=== PATIENT | male | born 1990 | race Hispanic/Latino ===

== ENCOUNTER 2017-05-29 17:11 | Emergency (ER) | payer SELFPAY | END 2017-05-29 18:04 | disposition home or self-care (01) | LOC: EDH 17:11 | DX: M54.5 Low back pain (principal); Z72.0 Tobacco use; Z88.0 Allergy status to penicillin | CPT/HCPCS: 99281 ==

== ENCOUNTER 2019-11-04 18:18 | Emergency (ER) | payer SELFPAY | END 2019-11-04 20:23 | disposition home or self-care (01) | LOC: EDH 18:18 | DX: F41.1 Generalized anxiety disorder (principal); I10 Essential (primary) hypertension; Z87.891 Personal history of nicotine dependence; Z88.0 Allergy status to penicillin ==

== ENCOUNTER 2024-06-18 21:00 | Emergency (ER) | payer BC ==
[~2024-06-18] VITALS: Ht 190.5 cm; Wt 161.5 kg
--- NOTE | 2024-06-18 21:31 | ERN ---
ED Note History of Present Illness Stated Complaint: HEADACHES,MULTIPLE COMPLAINTS Time Seen by MD: 21:08 Time Seen by Midlevel: 21:08 Dictation: The patient is a 34-year-old male with a history of anxiety who presents to the emergency department with complaints of left side and occipital headache, palpitations onset today. Patient denies any trauma, denies any nausea vomiting or diarrhea, denies any fevers. Denies any chest pain. Allergies: Coded Allergies: Penicillins (Unverified Allergy, Unknown, 06/18/24) Past Medical History RN Note Reviewed/Agreed w/PFSH: Yes Review of System Dictation Constitutional: Negative for fever,chills, and weight loss Eyes: Negative for injury, pain,redness, and discharge ENT: Negative for injury,pain or swelling Cardiovascular: Negative for chest pain, and edema positive for palpitations Respiratory: Negative for shortness of breath, cough, and wheezing, Abdomen/GI: Negative for abdominal pain, nausea, vomiting, diarrhea, and constipation Back: Negative for injury and pain : Negative for injury, bleeding and discharge MS/Extremity: Negative for injury and deformity Skin: Negative for rash, and discoloration Neuro: Negative for weakness, numbness, tingling, and seizure positive for headache Psych: Negative for suicide ideation, homicidal ideation, and hallucinations Initial Vital Sign VS Vital Signs Date Time Temp Pulse Resp B/P (MAP) Pulse Ox O2 Delivery O2 Flow Rate FiO2 06/18/24 21:49 98.8 95 18 150/90 98 Room Air 0 06/19/24 00:14 21 Physical Exam Dictation Vital Signs reviewed General Appearance: Alert, oriented x 3, no acute distress, well developed, nourished. Head and Face: non-traumatic. Eyes: PERRL, pink conjunctivas, eyelid no trauma, anterior chamber with arcus senilis. Ears: Pinnas intact and no signs of trauma or erythema ear canals clear and no discharge TM no erythema Nose: No discharge, no bleeding. Oropharynx: Mouth normal, tongue pink. pharynx clear,no erythema, tonsils no exudates, no abscesses noted, mucous membrane moist Neck: Supple, non-tender, no thyromegaly, no masses, no JVD, no bruits Breast:Deferred Chest:No tenderness, no crepitus, no paradoxical movement, no retractions Lungs:Clear, well-ventilated, symmetric, no rales, no wheezing, no rhonchi, no stridor, good breath sounds bilaterally Heart: Regular rate, regular rhythm, no murmur, no gallops Vascular: no peripheral edema, Abdomen: Soft, positive bowel sounds, nondistended, no guarding, nontender, no rebound, no masses no hepatomegaly, no splenomegaly, no Schreiber's sign, no hernias. Rectal: Deferred Genital: Deferred Neurological: Normal speech, motor function intact, sensory function intact Musculoskeletal: Neck nontender, full range of motion, back nontender, full range of motion, Extremities: nontender, full range of motion Skin: Color pink, dry, no turgor, no rash, no lacerations, no abrasions, no contusions. Lymphatic: Deferred Results (Laboratory/Radiology) Laboratory/Radiology Laboratory Tests Test 06/18/24 22:03 06/18/24 23:18 White Blood Count 10.6 K/uL (4.8-10.8) Red Blood Count 4.96 MIL/uL (4.50-6.20) Hemoglobin 14.1 g/dL (14.0-18.0) Hematocrit 41.9 % (42-54) L Mean Corpuscular Volume 84.5 fL (79-99) Mean Corpuscular Hemoglobin 28.4 pg (27.0-33.0) Mean Corpuscular Hemoglobin Concent 33.7 g/dL (32.0-36.0) Red Cell Distribution Width 13.8 % (11.0-15.5) Platelet Count 345 K/uL (130-400) Mean Platelet Volume 11.5 fL (7.5-10.5) H Immature Granulocyte % (Auto) 0.3 % (0-1) Neutrophils (%) (Auto) 74.9 % (40.0-77.0) Lymphocytes (%) (Auto) 18.0 % (21.0-51.0) L Monocytes (%) (Auto) 5.2 % (3.0-13.0) Eosinophils (%) (Auto) 0.8 % (0.0-8.0) Basophils (%) (Auto) 0.8 % (0.0-5.0) Neutrophils # (Auto) 8.0 K/uL (1.8-7.7) H Lymphocytes # (Auto) 1.9 K/uL (1.0-4.8) Monocytes # (Auto) 0.6 K/uL (0.1-1.0) Eosinophils # (Auto) 0.09 K/uL (0.00-0.70) Basophils # (Auto) 0.08 K/uL (0.00-0.20) Absolute Immature Granulocyte (auto 0.03 K/uL (0-1) Nucleated Red Blood Cells 0.0 % (0.0-0.19) Sodium Level 140 mmol/L (136-145) Potassium Level 4.0 mmol/L (3.5-5.1) Chloride Level 104 mmol/L (101-111) Carbon Dioxide Level 29 mmol/L (21-32) Blood Urea Nitrogen 9 mg/dL (7-18) Creatinine 0.9 mg/dL (0.5-1.3) Glomerular Filtration Rate Calc 115 mL/min (>90) Random Glucose 141 mg/dL (70-105) H Total Calcium 8.8 mg/dL (8.5-10.1) Total Creatine Kinase 138 U/L (21-232) Troponin I High Sensitivity 5 ng/L (4-75) Urine Color LIGHT-YELLOW (YELLOW) Urine Appearance CLEAR (CLEAR) Urine pH 8.5 (5.0-8.0) H Urine Specific [place] 1.021 (1.001-1.031) Urine Protein 20 mg/dL (NEGATIVE) H Urine Glucose (UA) NEGATIVE mg/dL (NEGATIVE) Urine Ketones NEGATIVE mg/dL (NEGATIVE) Urine Occult Blood NEGATIVE (NEGATIVE) Urine Nitrate NEGATIVE (NEGATIVE) Urine Bilirubin NEGATIVE mg/dL (NEGATIVE) Urine Urobilinogen 0.2 mg/dL (0.2-1.0) Urine Leukocyte Esterase NEGATIVE Denise/uL Urine RBC 0-1 /HPF (0-1) Urine WBC 0-1 /HPF (0-1) Urine Bacteria None /HPF (None Seen) Urine Opiates Screen NEGATIVE (NEGATIVE) Urine Barbiturates Screen NEGATIVE (NEGATIVE) Urine Phencyclidine Screen NEGATIVE (NEGATIVE) Urine Amphetamines Screen NEGATIVE (NEGATIVE) Urine Benzodiazepines Screen NEGATIVE (NEGATIVE) Urine Cocaine Screen NEGATIVE (NEGATIVE) Urine Marijuana (THC) Screen NEGATIVE (NEGATIVE) REASON: headache ORDERING PHYSICIAN: ELLA HANCOCK PATTERN RULER PROCEDURE: HEAD WO - CT HEAD/BRAIN W/O CONTRAST CT HEAD/BRAIN W/O CONTRAST INDICATION: headache TECHNIQUE: CT HEAD/BRAIN W/O CONTRAST. CT was performed with one or more of the following dose reduction techniques: Automated exposure control, adjustment of the mA and/or kV according to the patient's size, or use of the iterative reconstruction technique. Comparison: None FINDINGS: The ventricles and extra ventricular CSF spaces are within normal limits. No mass effect, midline shift or herniation. No extra axial collection. No acute intracranial bleed. The visualized paranasal sinuses and mastoid air cells are normally aerated. IMPRESSION: No acute intracranial findings. Labs Reviewed?: Yes EKG: (+) rhythm (Sinus rhythm) EKG Comment: Date:06/18/2024 Time:2153 Ventricular rate:84 IL interval:164 QRS duration:107 QT/QTc:359 EKG interpretation: Sinus rhythm Reviewed by ED Attending no STEMI ED Course ED Course Orders Procedure Category Date Status Time Cbc With Differential LAB 06/18/24 Complete 21:13 Chest 1vw RAD 06/18/24 Taken 21:13 12 Lead Ekg Tracing- EKG 06/18/24 Logged Technical 21:13 Creatine Kinase, Total LAB 06/18/24 Complete 21:13 Troponin I High LAB 06/18/24 Complete Sensitivity 21:13 Urinalysis Profile LAB 06/18/24 Complete 21:13 Basic Metabolic Panel LAB 06/18/24 Complete 21:13 Ct Head/Brain W/O CT 06/18/24 Resulted Contrast 21:13 Drug Screen Urine LAB 06/18/24 Complete 21:13 Acetaminophen 500mg PHA 06/18/24 Complete Tab (Tylenol 500mg T 22:00 0.9%Nacl 1000ml (Ns PHA 06/18/24 Complete 1000ml) 22:00 Hydroxyzine 25mg Tab PHA 06/18/24 Complete (Atarax 25mg Tab) 22:00 Current Medications Medications (Trade) Dose Ordered Sig/Vanessa Route PRN Reason Start Time Stop Time Status Last Admin Dose Admin Acetaminophen (TYLenol 500MG TAB) 1,000 mg ONCE ONCE PO 06/18/24 22:00 06/18/24 22:01 DC 06/18/24 23:27 Hydroxyzine HCl (ATArax 25MG TAB) 25 mg ONCE ONCE PO 06/18/24 22:00 06/18/24 22:01 DC 06/18/24 23:27 Sodium Chloride 1,000 ml @ 0 mls/hr ONCE ONCE IV 06/18/24 22:00 06/18/24 22:01 DC 06/19/24 00:08 Vital Signs Date Time Temp Pulse Resp B/P (MAP) Pulse Ox O2 Delivery O2 Flow Rate FiO2 06/19/24 00:14 87 18 148/88 98 Room Air* 0 21 06/18/24 21:49 98.8 95 18 150/90 98 Room Air 0 Medical Decision Making MDM The patient is a 34-year-old male with a history of anxiety who presents to the emergency department with complaints of left side and occipital headache, palpitations onset today. Patient denies any trauma, denies any nausea vomiting or diarrhea, denies any fevers. Denies any chest pain. CBC showed no leukocytosis, no anemia, chemistry showed no electrolyte imbalance, normal renal function, negative troponin, urinalysis unremarkable, drug screen unremarkable CT head showed no acute intracranial hemorrhage. Patient reports feeling better. Reports improving in headache. Will be discharged to follow up with PCP. Patient in no acute distress, nontoxic appearance. Differential diagnosis: Intracerebral hemorrhage, ACS, dehydration, anxiety Need for hospitalization: Patient does not meet criteria for hospitalization. There are no social concerns with this patient. DX & DISP Disposition: Discharge Departure Impression: Primary Impression: Anxiety Additional Impression: Headache Condition: Stable Scripts Hydroxyzine HCl (Hydroxyzine HCl) 25 Mg Tablet 1 TAB PO TID for anxiety for 30 Days, #90 TAB 0 Refills Prov: ELLA HANCOCK PATTERN RULER 06/19/24 Additional Instructions: FOLLOW-UP WITH PRIMARY CARE PROVIDER IN 1 TO 2 DAYS. TAKE MEDICATIONS DIRECTED HERE IN THE EMERGENCY ROOM. OKAY TO CONTINUE HOME MEDICATIONS UNLESS OTHERWISE DISCUSSED DURING YOUR VISIT IN THE EMERGENCY ROOM TODAY. RETURN TO YOUR NEAREST EMERGENCY ROOM IF SYMPTOMS WORSEN OR IF THERE IS NO IMPROVEMENT. CALL 911 IF YOU NEED IMMEDIATE ASSISTANCE. TAKE TYLENOL OR MOTRIN [id number] NEEDED AND IF NO CONTRAINDICATIONS ARE PRESENT. INCREASE ORAL HYDRATION. A WOUND CULTURE OR URINE CULTURE WAS ORDERED HERE IN THE EMERGENCY ROOM DEPARTMENT PLEASE FOLLOW-UP WITH PRIMARY CARE PROVIDER AND ADVISE THEM TO GET REPEAT PORTS FROM OUR FACILITY. IF YOU HAD ANY CHIO WRAP/SPLINTS THAT WERE APPLIED HERE, PLEASE DO NOT REMOVE THEM UNTIL YOU SEE YOUR PRIMARY CARE OR SPECIALTY. Referrals: SELF,REFERRAL (PCP) Time of Disposition: 00:47 I have reviewed the case, and I agree with, Diagnosis and Plan ELLA HANCOCK Jun 18, 2024 21:31
--- NOTE | 2024-06-18 21:53 | HMCIMG ---
CT HEAD/BRAIN W/O CONTRAST INDICATION: headache TECHNIQUE: CT HEAD/BRAIN W/O CONTRAST. CT was performed with one or more of the following dose reduction techniques: Automated exposure control, adjustment of the mA and/or kV according to the patient's size, or use of the iterative reconstruction technique. Comparison: None FINDINGS: The ventricles and extra ventricular CSF spaces are within normal limits. No mass effect, midline shift or herniation. No extra axial collection. No acute intracranial bleed. The visualized paranasal sinuses and mastoid air cells are normally aerated. IMPRESSION: No acute intracranial findings.
[2024-06-18 22:17] LABS: BASOPHILS # (AUTO) 0.08 K/uL (0.00-0.20); BASOPHILS % (AUTO) 0.8 % (0.0-5.0); EOSINOPHILS # (AUTO) 0.09 K/uL (0.00-0.70); EOSINOPHILS % (AUTO) 0.8 % (0.0-8.0); HEMATOCRIT 41.9 % (42-54); IMMATURE GRANULOCYTE ABSOLUTE 0.03 K/uL (0-1); LYMPHOCYTES # (AUTO) 1.9 K/uL (1.0-4.8); MEAN CORPUSCULAR HEMOGLOBIN 28.4 pg (27.0-33.0); MEAN CORPUSCULAR HGB CONC 33.7 g/dL (32.0-36.0); MEAN CORPUSCULAR VOLUME 84.5 fL (79-99); MONOCYTES # (AUTO) 0.6 K/uL (0.1-1.0); MONOCYTES % (AUTO) 5.2 % (3.0-13.0); NEUTROPHILS % (AUTO) 74.9 % (40.0-77.0); PLATELET COUNT (AUTO) 345 K/uL (130-400); RED BLOOD CELL COUNT(AUTO) 4.96 MIL/uL (4.50-6.20); RED CELL DISTRIBUTION WIDTH 13.8 % (11.0-15.5); WHITE BLOOD COUNT (AUTO) 10.6 K/uL (4.8-10.8)
[2024-06-18 22:29] LABS: CREATININE 0.9 mg/dL (0.5-1.3)
[2024-06-18] MEDS: acetaMINOPHEN 500 MG TABLET PO ONE (23:27)
[2024-06-18] MEDS: hydrOXYzine 25 MG TABLET PO ONE (23:27)
[2024-06-18 23:28] LABS: ADD UA MICROSCOPIC YES; APPEARANCE,URINE CLEAR (CLEAR); BILIRUBIN,URINE NEGATIVE (NEGATIVE); COLOR,URINE LIGHT-YELLOW (YELLOW); GLUCOSE, URINE (UA) NEGATIVE (NEGATIVE); KETONES,URINE NEGATIVE (NEGATIVE); LEUKOCYTE ESTERASE ,URINE NEGATIVE Leu/uL (NEGATIVE); NITRATE,URINE NEGATIVE (NEGATIVE); OCCULT BLOOD,URINE NEGATIVE (NEGATIVE); PH,URINE 8.5 (5.0-8.0); PROTEIN,URINE 20 mg/dL (NEGATIVE); UROBILINOGEN,URINE 0.2 mg/dL (0.2-1.0)
[2024-06-18 23:29] LABS: MUCUS,URINE RARE LPF (None Seen); RBC,URINE 0-1 /HPF (0-1); WBC,URINE 0-1 /HPF (0-1)
[2024-06-18 23:36] LABS: AMPHET/METH SCREEN,URINE NEGATIVE (NEGATIVE); BARBITURATE SCREEN, URINE NEGATIVE (NEGATIVE); BENZODIAZEPINES SCREEN,URINE NEGATIVE (NEGATIVE); CANNABINOID SCREEN,URINE NEGATIVE (NEGATIVE); COCAINE SCREEN,URINE NEGATIVE (NEGATIVE); OPIATE SCREEN,URINE NEGATIVE (NEGATIVE); PHENCYCLIDINE SCREEN,URINE NEGATIVE (NEGATIVE)
[2024-06-19] MEDS: 0.9%NACL 1000ML 1,000 ML IV ONE (00:08)
[2024-06-19] MEDS ORDERED: HYDR-3421 PO (00:48)
[2024-06-19 00:50] VITALS: BP 144/85; PULSE 85; RESP 18; TEMP 98.5; O2SAT 98
--- NOTE | 2024-06-19 06:43 | EKG ---
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
--- NOTE | 2024-06-19 08:42 | HMCIMG ---
Exam Type: CHEST 1VW Clinical Information: sob Comparison: None Findings: The lungs are clear of infiltrates. The heart is normal in size. The bony and soft tissue structures of the chest are unremarkable. Impression: Clear lungs.
== END 2024-06-19 00:52 | disposition home or self-care (01) ==
LOC: EDH 21:00
DX: F41.9 Anxiety disorder, unspecified (principal); R51.9 Headache, unspecified; Z88.0 Allergy status to penicillin
CPT/HCPCS: 99284; 70450; 71045; 82550; 84484; 80048; 80305; 85025; 81001; 36415; 93005; J7030

== ENCOUNTER 2025-01-17 19:54 | Emergency (ER) | payer BC ==
[~2025-01-17] VITALS: Ht 190.5 cm; Wt 143.8 kg
[~2025-01-17 19:54] MED LIST: HYDR-3421 PO
[2025-01-17] MEDS ORDERED: HYDR-3421 PO (20:11)
--- NOTE | 2025-01-17 20:12 | ERN ---
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 HE DENIES SUICIDAL OR HOMICIDAL IDEATION JUST STATES HE GOT VERY NERVOUS AND WANTED TO COME TO THE HOSPITAL. HE DENIES HAVING A PRIMARY CARE DOCTOR STATES HE WAS HERE BACK IN JUNE WAS GIVEN HYDR OXYZINE WHICH HELPED HIM A LOT AND HE WOULD LIKE A REFILL. I TOLD HIM THAT WE WOULD NOT BE REFILLING AT TO THE EMERGENCY ROOM AND HE COULD FOLLOW UP OUTPATIENT AND I WOULD PROVIDE A LIST OF DOCTORS. Allergies: Coded Allergies: Penicillins (Unverified Allergy, Unknown, 06/18/24) Home Meds Active Scripts Hydroxyzine HCl (Hydroxyzine HCl) 25 Mg Tablet, 1 TAB PO TID for anxiety for 30 Days, #90 TAB 0 Refills Prov:ELLA HANCOCK INSURANCE HEALTHCARE CONSULTANT 06/19/24 Past Medical History Past Medical History: Anxiety Additional Past Medical Hx: OPIOIOD DEPENDENCE Surgical History: None RN Note Reviewed/Agreed w/PFSH: Yes Review of System Dictation CONSTITUTIONAL: NEGATIVE EXCEPT FOR HPI HEAD/FACE: NEGATIVE EXCEPT FOR HPI EENT: NEGATIVE EXCEPT FOR HPI RESPIRATORY: NEGATIVE EXCEPT FOR HPI GASTROINTESTINAL/ABDOMINAL: NEGATIVE EXCEPT FOR HPI GENITOURINARY: NEGATIVE EXCEPT FOR HPI MUSCULOSKELETAL: NEGATIVE EXCEPT FOR HPI INTEGUMENTARY: NEGATIVE EXCEPT FOR HPI NEUROLOGICAL/PSYCH: NEGATIVE EXCEPT FOR HPI ANXIETY/PANIC ATTACK HEMATOLOGIC/LYMPHATIC: NEGATIVE EXCEPT FOR HPI ALL SYSTEMS NEGATIVE, EXCEPT NOTED ABOVE. 13 POINT REVIEW OF SYSTEMS ASSESSED AND ALL NEGATIVE EXCEPT FOR ABOVE. Initial Vital Sign VS Vital Signs Date Time Temp Pulse Resp B/P (MAP) Pulse Ox O2 Delivery O2 Flow Rate FiO2 01/17/25 19:56 98.2 75 20 144/69 96 Room Air Physical Exam Dictation VITAL SIGNS REVIEWED GENERAL APPEARANCE: ALERT, ORIENTED X 3, NO ACUTE DISTRESS, WELL DEVELOPED, NOURISHED. HEAD AND FACE: NON-TRAUMATIC. EYES: PERRL, PINK CONJUNCTIVAS, EYELID NO TRAUMA, ANTERIOR CHAMBER WITH ARCUS SENILIS. EARS: PINNAS INTACT AND NO SIGNS OF TRAUMA OR ERYTHEMA EAR CANALS CLEAR AND NO DISCHARGE TM NO ERYTHEMA NOSE: NO DISCHARGE, NO BLEEDING. OROPHARYNX: MOUTH NORMAL, TONGUE PINK, PHARYNX CLEAR,NO ERYTHEMA, TONSILS NO EXUDATES, NO ABSCESSES NOTED, MUCOUS MEMBRANE MOIST NECK: SUPPLE, NON-TENDER, NO THYROMEGALY, NO MASSES, NO JVD, NO BRUITS BREAST:DEFERRED CHEST:NO TENDERNESS, NO CREPITUS, NO PARADOXICAL MOVEMENT, NO RETRACTIONS LUNGS:CLEAR, WELL-VENTILATED, SYMMETRIC, NO RALES, NO WHEEZING, NO RHONCHI, NO STRIDOR, GOOD BREATH SOUNDS BILATERALLY HEART: REGULAR RATE, REGULAR RHYTHM, NO MURMUR, NO GALLOPS VASCULAR: NO PERIPHERAL EDEMA, ABDOMEN: SOFT, POSITIVE BOWEL SOUNDS, NONDISTENDED, NO GUARDING, NONTENDER, NO REBOUND, NO MASSES NO HEPATOMEGALY, NO SPLENOMEGALY, NO TORRES'S SIGN, NO HERNIAS. RECTAL: DEFERRED GENITAL: DEFERRED NEUROLOGICAL: NORMAL SPEECH, MOTOR FUNCTION INTACT, SENSORY FUNCTION INTACT NO SUICIDAL OR HOMICIDAL IDEATION MUSCULOSKELETAL: NECK NONTENDER, FULL RANGE OF MOTION, BACK NONTENDER, FULL RANGE OF MOTION, EXTREMITIES: NONTENDER, FULL RANGE OF MOTION SKIN: COLOR PINK, DRY, NO TURGOR, NO RASH, NO LACERATIONS, NO ABRASIONS, NO CONTUSIONS. LYMPHATIC: DEFERRED Results (Laboratory/Radiology) Labs Reviewed?: Yes ED Course ED Course Vital Signs Date Time Temp Pulse Resp B/P (MAP) Pulse Ox O2 Delivery O2 Flow Rate FiO2 01/17/25 19:56 98.2 75 20 144/69 96 Room Air 2004/NO LABS OR IMAGING INDICATED. WE WILL PROVIDE PATIENT FIVE DAYS WORTH OF HYDROXYZINE GIVEN A LIST OF PRIMARY CARE DOCTORS ON STAFF TO FOLLOW UP IN THE NEXT SEVERAL DAYS NEEDED Medical Decision Making MDM MEDICAL DECISION-MAKING BASED ON EMPIRIC TREATMENT FOR ANXIETY/PANIC ATTACK. NO LABS OR IMAGING INDICATED. PATIENT WILL BE GIVEN HYDROXYZINE FOR FIVE DAYS TOLD TO FOLLOW UP WITH THE PRIMARY CARE DOCTOR OR CALL [facility] FOR FURTHER EVALUATION AND TREATMENT DX & DISP Disposition: Discharge Departure Impression: Primary Impression: Anxiety Condition: Stable Scripts Hydroxyzine HCl (Hydroxyzine HCl) 25 Mg Tablet 1 TAB PO BID for anxiety for 5 Days, #10 TAB 0 Refills Prov: GEORGETTE PERKINS TRUCK ENGINE ASSEMBLER 01/17/25 Additional Instructions: FOLLOW-UP WITH PRIMARY CARE PROVIDER IN 1 TO 2 DAYS. TAKE MEDICATIONS DIRECTED HERE IN THE EMERGENCY ROOM. OKAY TO CONTINUE HOME MEDICATIONS UNLESS OTHERWISE DISCUSSED DURING YOUR VISIT IN THE EMERGENCY ROOM TODAY. RETURN TO YOUR NEAREST EMERGENCY ROOM IF SYMPTOMS WORSEN OR IF THERE IS NO IMPROVEMENT. CALL 911 IF YOU NEED IMMEDIATE ASSISTANCE. TAKE TYLENOL OR MOTRIN [id number] NEEDED AND IF NO CONTRAINDICATIONS ARE PRESENT. INCREASE ORAL HYDRATION. A WOUND CULTURE OR URINE CULTURE WAS ORDERED HERE IN THE EMERGENCY ROOM DEPARTMENT PLEASE FOLLOW-UP WITH PRIMARY CARE PROVIDER AND ADVISE THEM TO GET REPEAT PORTS FROM OUR FACILITY. IF YOU HAD ANY CHIO WRAP/SPLINTS THAT WERE APPLIED HERE, PLEASE DO NOT REMOVE THEM UNTIL YOU SEE YOUR PRIMARY CARE OR SPECIALTY. TAKE HYDROXYZINE DIRECTED FOR ANXIETY. FOLLOW UP WITH ONE OF THE DOCTORS ON THE LIST PROVIDED YOU FOR MANAGEMENT OF YOUR ANXIETY AND PANIC ATTACKS. Referrals: SELF,REFERRAL (PCP) Time of Disposition: 20:10 I have reviewed the case, and I agree with, Diagnosis and Plan GEORGETTE PERKINS NP Jan 17, 2025 20:12
[2025-01-17 20:17] VITALS: BP 144/69; PULSE 75; RESP 20; TEMP 98.3; O2SAT 96
== END 2025-01-17 20:31 | disposition home or self-care (01) ==
LOC: EDH 19:54
DX: F41.9 Anxiety disorder, unspecified (principal); Z88.0 Allergy status to penicillin
CPT/HCPCS: 99283

== ENCOUNTER 2025-01-18 01:30 | Emergency (ER) | payer BC ==
[~2025-01-18] VITALS: Ht 190.5 cm; Wt 142.0 kg
--- NOTE | 2025-01-18 01:46 | ERN ---
ED Note History of Present Illness Stated Complaint: C/O TENSENESS TO BACKOF NECK, ANXIETY HAND LEATHER TRIMMER Chief Complaint: Neck Pain Time Seen by MD: 01:38 Time Seen by Midlevel: 01:39 Dictation: 34-year-old male who presents to the emergency department due to report of having an anxious type of sensation. He states that he has moved some marijuana like if he had out an out of body sensation. Currently, he denies having any headache, changes in vision, nausea, vomiting, chest pain or shortness of sarah ath. Upon initial evaluation, the patient presents in no acute distress. Allergies: Coded Allergies: Penicillins (Unverified Allergy, Unknown, 06/18/24) Emergency Care HAND LEATHER TRIMMER: None Home Meds Active Scripts Hydroxyzine HCl (Hydroxyzine HCl) 25 Mg Tablet, 1 TAB PO BID for anxiety for 5 Days, #10 TAB 0 Refills Prov:GEORGETTE PERKINS DIECAST MACHINE OPERATOR 01/17/25 Hydroxyzine HCl (Hydroxyzine HCl) 25 Mg Tablet, 1 TAB PO TID for anxiety for 30 Days, #90 TAB 0 Refills Prov:ELLA HANCOCK ELEVATORS INSPECTOR 06/19/24 Past Medical History Past Medical History: Anxiety Additional Past Medical Hx: OPIOIOD DEPENDENCE Surgical History: None PSYCH History: anxiety RN Note Reviewed/Agreed w/PFSH: Yes Review of System Dictation Constitutional: Negative for fever,chills, and weight loss Eyes: Negative for injury, pain,redness, and discharge ENT: Negative for injury,pain or swelling Cardiovascular: Negative for chest pain, palpitations, and edema Respiratory: Negative for shortness of breath, cough, and wheezing, Abdomen/GI: Negative for abdominal pain, nausea, vomiting, diarrhea, and constipation Back: Negative for injury and pain : Negative for injury, bleeding and discharge MS/Extremity: Negative for injury and deformity Skin: Negative for rash, and discoloration Neuro: Negative for headache, weakness, numbness, tingling, and seizure Psych: Negative for suicide ideation, homicidal ideation, and hallucinations Initial Vital Sign VS Vital Signs Date Time Temp Pulse Resp B/P (MAP) Pulse Ox O2 Delivery O2 Flow Rate FiO2 01/18/25 01:32 98.2 77 20 152/82 98 Room Air Physical Exam Dictation General: awake, alert, NAD Head/Face: Normocephalic, atraumatic Eyes: PERRL, EOMI ENT: Oral mucosa moist Neck: Trachea midline, supple Cardiovascular: RRR, no edema Respiratory: Symmetrical, non-labored Abdomen: Soft, non-tender, non-distended, no guarding. Skin: Warm, dry, good turgor, no rash MS/Extremity: Pulses equal, no cyanosis, neurovascular intact, FROM Neuro: COAx4, GCS 15, steady gait, Psych: Normal behavior, mood, and affect normal ED Course ED Course Vital Signs Date Time Temp Pulse Resp B/P (MAP) Pulse Ox O2 Delivery O2 Flow Rate FiO2 01/18/25 01:32 98.2 77 20 152/82 98 Room Air Medical Decision Making MDM MDM: Differential diagnosis: Anxiety, cannabis use. Rationale: Tests considered and ordered secondary to shared decision making include: Previous outside records reviewed: Old ER visits. Risk of complication and/or morbidity or mortality of patient management: None Medications-Per medication reconciliation Need for hospitalization: Patient does not meet criteria for hospitalization. Need for emergency major/minor surgery: No There are no social concerns with this patient. Prescription drug management Prescriptions will include symptomatic care Patient's prior external medical records from other ER visits were reviewed by me as indicated. Prior testing and results from previous visits were reviewed. Prior tests were taken into account with medical decision making and resource utilization, independent historian/historians were used to obtain complete medical history. I independently interpreted the test that were performed, results were reviewed by me and considered findings on radiology if ordered. Medical management and examination interpretation discussions were had by me with other qualified healthcare professionals as indicated for the patient's care. DX & DISP Disposition: Discharge Departure Impression: Primary Impression: Cannabis use disorder Condition: Stable Referrals: SELF,REFERRAL (PCP) Time of Disposition: 01:45 MELY BO Jan 18, 2025 01:46
[2025-01-18 02:12] VITALS: BP 142/82; PULSE 76; RESP 16; TEMP 98.2; O2SAT 99
== END 2025-01-18 02:42 | disposition home or self-care (01) ==
LOC: EDH 01:30
DX: F12.10 Cannabis abuse, uncomplicated (principal); F41.9 Anxiety disorder, unspecified; Z88.0 Allergy status to penicillin
CPT/HCPCS: 99281

== ENCOUNTER 2025-04-08 21:52 | Emergency (ER) | payer BC, OTHER ==
[~2025-04-08] VITALS: Ht 190.5 cm; Wt 145.1 kg
[2025-04-08 21:53] VITALS: BP 126/71; PULSE 87; RESP 20; TEMP 97.9
--- NOTE | 2025-04-08 21:54 | NUR ---
UA CUP PROVIDED
--- NOTE | 2025-04-08 21:59 | NUR ---
UA COLLECTED AND SENT
--- NOTE | 2025-04-08 22:09 | ERN ---
ED Note History of Present Illness Stated Complaint: " ANXIETY" Chief Complaint: Anxiety/Panic Attack Time Seen by MD: 22:00 Dictation: PATIENT IS A 35-YEAR-OLD MALE WHO CAME HERE WITH HIS SON WITH COMPLAINTS OF HAVING A PANIC ATTACK ANXIETY A COUPLE OF HOURS AGO ON-CALL. HE STATES IT HAS GOTTEN BETTER NOW. HE DENIES SI OR HI AND STATES WHEN HE IS COMING IN THE PAST WE WILL GIVE HIM HYDROXYZINE. HE DOES NOT HAVE A PRIMARY CARE DOCTOR. Allergies: Coded Allergies: Penicillins (Unverified Allergy, Unknown, 06/18/24) Home Meds Active Scripts Hydroxyzine HCl (Hydroxyzine HCl) 25 Mg Tablet, 1 TAB PO BID for anxiety for 5 Days, #10 TAB 0 Refills Prov:GREGORIOGEORGETTE Hellen STRUCTURES ENGINEER 01/17/25 Hydroxyzine HCl (Hydroxyzine HCl) 25 Mg Tablet, 1 TAB PO TID for anxiety for 30 Days, #90 TAB 0 Refills Prov:ELLA HANCOCK STRUCTURES ENGINEER 06/19/24 Past Medical History Past Medical History: Anxiety, Other Additional Past Medical Hx: OPIOIOD DEPENDENCE Surgical History: None PSYCH History: anxiety RN Note Reviewed/Agreed w/PFSH: Yes Review of System Dictation CONSTITUTIONAL: NEGATIVE EXCEPT FOR HPI HEAD/FACE: NEGATIVE EXCEPT FOR HPI EENT: NEGATIVE EXCEPT FOR HPI RESPIRATORY: NEGATIVE EXCEPT FOR HPI GASTROINTESTINAL/ABDOMINAL: NEGATIVE EXCEPT FOR HPI GENITOURINARY: NEGATIVE EXCEPT FOR HPI MUSCULOSKELETAL: NEGATIVE EXCEPT FOR HPI INTEGUMENTARY: NEGATIVE EXCEPT FOR HPI NEUROLOGICAL/PSYCH: NEGATIVE EXCEPT FOR HPI ANXIETY HEMATOLOGIC/LYMPHATIC: NEGATIVE EXCEPT FOR HPI ALL SYSTEMS NEGATIVE, EXCEPT NOTED ABOVE. 13 POINT REVIEW OF SYSTEMS ASSESSED AND ALL NEGATIVE EXCEPT FOR ABOVE. Initial Vital Sign VS Vital Signs Date Time Temp Pulse Resp B/P (MAP) Pulse Ox O2 Delivery O2 Flow Rate FiO2 04/08/25 21:53 97.9 87 20 126/71 99 Room Air Physical Exam Dictation VITAL SIGNS REVIEWED PATIENT'S YOUNG SON IN ROOM WITH THE EXAM. GENERAL APPEARANCE: ALERT, ORIENTED X 3, NO ACUTE DISTRESS, WELL DEVELOPED, NOURISHED. HEAD AND FACE: NON-TRAUMATIC. EYES: PERRL, PINK CONJUNCTIVAS, EYELID NO TRAUMA, ANTERIOR CHAMBER WITH ARCUS SENILIS. EARS: PINNAS INTACT AND NO SIGNS OF TRAUMA OR ERYTHEMA EAR CANALS CLEAR AND NO DISCHARGE TM NO ERYTHEMA NOSE: NO DISCHARGE, NO BLEEDING. OROPHARYNX: MOUTH NORMAL, TONGUE PINK, PHARYNX CLEAR,NO ERYTHEMA, TONSILS NO EXUDATES, NO ABSCESSES NOTED, MUCOUS MEMBRANE MOIST NECK: SUPPLE, NON-TENDER, NO THYROMEGALY, NO MASSES, NO JVD, NO BRUITS BREAST:DEFERRED CHEST:NO TENDERNESS, NO CREPITUS, NO PARADOXICAL MOVEMENT, NO RETRACTIONS LUNGS:CLEAR, WELL-VENTILATED, SYMMETRIC, NO RALES, NO WHEEZING, NO RHONCHI, NO STRIDOR, GOOD BREATH SOUNDS BILATERALLY HEART: REGULAR RATE, REGULAR RHYTHM, NO MURMUR, NO GALLOPS VASCULAR: NO PERIPHERAL EDEMA, ABDOMEN: SOFT, POSITIVE BOWEL SOUNDS, NONDISTENDED, NO GUARDING, NONTENDER, NO REBOUND, NO MASSES NO HEPATOMEGALY, NO SPLENOMEGALY, NO TORRES'S SIGN, NO HERNIAS. RECTAL: DEFERRED GENITAL: DEFERRED NEUROLOGICAL: NORMAL SPEECH, MOTOR FUNCTION INTACT, SENSORY FUNCTION INTACT DENIES SI OR HI MUSCULOSKELETAL: NECK NONTENDER, FULL RANGE OF MOTION, BACK NONTENDER, FULL RANGE OF MOTION, EXTREMITIES: NONTENDER, FULL RANGE OF MOTION SKIN: COLOR PINK, DRY, NO TURGOR, NO RASH, NO LACERATIONS, NO ABRASIONS, NO CONTUSIONS. LYMPHATIC: DEFERRED Results (Laboratory/Radiology) Labs Reviewed?: Yes ED Course ED Course Orders Procedure Category Date Status Time Urinalysis Profile LAB 04/08/25 Logged 21:58 Drug Screen Urine LAB 04/08/25 Logged 21:58 Vital Signs Date Time Temp Pulse Resp B/P (MAP) Pulse Ox O2 Delivery O2 Flow Rate FiO2 04/08/25 21:53 97.9 87 20 126/71 99 Room Air Medical Decision Making MDM MEDICAL DECISION-MAKING BASED ON HPI AND EXAMINATION. PATIENT IS NEUROLOGICALLY INTACT NO SI OR HI WE WILL BE GIVEN A LIST OF LOCAL PRIMARY CARE DOCTORS ON STAFF PRESCRIBED A SMALL AMOUNT OF HYDROXYZINE PAMOATE UNTIL HE CAN SEE HIS DOCTOR NEXT WEEK DX & DISP Disposition: Discharge Departure Impression: Primary Impression: Panic attack Condition: Stable Scripts Hydroxyzine Pamoate (Hydroxyzine Pamoate) 100 Mg Capsule 100 MG PO AD, #10 CAP 0 Refills ONE TABLET TWICE A DAY NEEDED FOR ANXIETY OR INSOMNIA. Prov: GEORGETTE PERKINS STRUCTURES ENGINEER 04/08/25 Additional Instructions: FOLLOW-UP WITH PRIMARY CARE PROVIDER IN 1 TO 2 DAYS. TAKE MEDICATIONS DIRECTED HERE IN THE EMERGENCY ROOM. OKAY TO CONTINUE HOME MEDICATIONS UNLESS OTHERWISE DISCUSSED DURING YOUR VISIT IN THE EMERGENCY ROOM TODAY. RETURN TO YOUR NEAREST EMERGENCY ROOM IF SYMPTOMS WORSEN OR IF THERE IS NO IMPROVEMENT. CALL 911 IF YOU NEED IMMEDIATE ASSISTANCE. TAKE TYLENOL OR MOTRIN [id number] NEEDED AND IF NO CONTRAINDICATIONS ARE PRESENT. INCREASE ORAL HYDRATION. A WOUND CULTURE OR URINE CULTURE WAS ORDERED HERE IN THE EM ERGENCY ROOM DEPARTMENT PLEASE FOLLOW-UP WITH PRIMARY CARE PROVIDER AND ADVISE THEM TO GET REPEAT PORTS FROM OUR FACILITY. IF YOU HAD ANY CHIO WRAP/SPLINTS THAT WERE APPLIED HERE, PLEASE DO NOT REMOVE THEM UNTIL YOU SEE YOUR PRIMARY CARE OR SPECIALTY. TAKE VISTARIL DIRECTED FOR ANXIETY. FOLLOW UP WITH ONE OF THE DOCTORS ON THE LIST PROVIDED YOU ON THURSDAY OR THURSDAY FOR MANAGEMENT OF YOUR ANXIETY DO NOT OPERATE A MOTORIZED VEHICLE OR HEAVY EQUIPMENT AND TAKE HYDROXYZINE PAMOATE Referrals: SELF,REFERRAL (PCP) GEORGETTE PERKINS Apr 08, 2025 22:09
== END 2025-04-08 22:14 | disposition home or self-care (01) ==
LOC: EDH 21:52
DX: F41.0 Panic disorder [episodic paroxysmal anxiety] (principal); Z88.0 Allergy status to penicillin
CPT/HCPCS: 99283